=== PATIENT | female | born 1975 | race Caucasian/White ===

== ENCOUNTER → 2020-12-14 15:04 | Outpatient (BNVA) | payer SELFPAY | PROVIDERS: Visit Provider Nurse Practitioner Family | DX: N30.00 Acute cystitis without hematuria (principal) | CPT/HCPCS: 81000 ==

== ENCOUNTER → 2021-04-18 12:02 | Outpatient (BNVA) | payer MEDICAID, SELFPAY | PROVIDERS: Visit Provider Emergency Medicine | DX: N39.41 Urge incontinence (principal) | CPT/HCPCS: 81000; 87086 ==

== ENCOUNTER → 2021-05-16 10:44 | Outpatient (BNVA) | payer MEDICAID, SELFPAY | PROVIDERS: PCP Family Medicine; Visit Provider Nurse Practitioner Family | DX: Z02.83 Encounter for blood-alcohol and blood-drug test (principal) | CPT/HCPCS: 80307 ==

== ENCOUNTER → 2022-01-17 09:08 | Outpatient (BNVA) | payer MEDICAID, SELFPAY | PROVIDERS: PCP Family Medicine; Visit Provider Family Medicine | DX: Z20.822 Contact with and (suspected) exposure to COVID-19 (principal); J44.9 Chronic obstructive pulmonary disease, unspecified; J30.9 Allergic rhinitis, unspecified; Z59.7 Insufficient social insurance and welfare support | CPT/HCPCS: 80307; 87426 ==

== ENCOUNTER → 2022-02-21 09:00 | Outpatient (BNVA) | payer MEDICAID, SELFPAY | PROVIDERS: PCP Family Medicine; Visit Provider Family Medicine | DX: K76.9 Liver disease, unspecified (principal); J44.9 Chronic obstructive pulmonary disease, unspecified; B18.2 Chronic viral hepatitis C; Z72.0 Tobacco use; B88.0 Other acariasis | CPT/HCPCS: 80053; 82977; 85025; 85610 ==

== ENCOUNTER → 2022-06-22 13:48 | Outpatient (BNVA) | payer MEDICAID, SELFPAY | PROVIDERS: PCP Family Medicine; Visit Provider Family Medicine | DX: L73.2 Hidradenitis suppurativa (principal); K76.9 Liver disease, unspecified; B18.2 Chronic viral hepatitis C; I10 Essential (primary) hypertension | CPT/HCPCS: 85025 ==

== ENCOUNTER → 2022-11-08 12:31 | Outpatient (BNVA) | payer MEDICAID, SELFPAY | PROVIDERS: PCP Family Medicine; Visit Provider Nurse Practitioner Family | DX: R39.9 Unspecified symptoms and signs involving the genitourinary system (principal) | CPT/HCPCS: 81000 ==

== ENCOUNTER → 2023-10-13 14:32 | Outpatient (BNVA) | payer MEDICAID, SELFPAY | PROVIDERS: PCP Family Medicine; Visit Provider Emergency Medicine | DX: R30.0 Dysuria (principal); R14.0 Abdominal distension (gaseous); R10.9 Unspecified abdominal pain; K76.9 Liver disease, unspecified | CPT/HCPCS: 81000; 87086 ==

== ENCOUNTER 2023-10-21 17:19 | Emergency (ER) | payer MEDICAID, SELFPAY ==
[2023-10-21 17:32] VITALS: BP 147/91; PULSE 90; RESP 16; TEMP 36.7; O2SAT 98
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
[2023-10-21] MEDS: HYDROcodone-acetaminophen 5-325 mg Tablet 1 TAB PO (19:35)
== END 2023-10-21 19:36 | disposition home or self-care (01) ==
PROVIDERS: Emergency Provider Nurse Practitioner Family; PCP Family Medicine
DX: S40.022A Contusion of left upper arm, initial encounter (principal); S40.021A Contusion of right upper arm, initial encounter; S10.91XA Abrasion of unspecified part of neck, initial encounter; M25.512 Pain in left shoulder; Y35.813A Legal intervention involving manhandling, suspect injured, initial encounter; F17.210 Nicotine dependence, cigarettes, uncomplicated; Z85.3 Personal history of malignant neoplasm of breast
CPT/HCPCS: 72040; 73000; 99284